=== PATIENT | male | born 1995 | race Two or more races ===

== ENCOUNTER 2024-03-10 12:50 | Emergency (ER) | payer MEDICAID, OTHER ==
[~2024-03-10] VITALS: Ht 167.6 cm; Wt 110.8 kg
[2024-03-10 14:34] VITALS: BP 111/66; PULSE 67; RESP 16; TEMP 98.8; O2SAT 97
[2024-03-10] MEDS: ONDANSETRON ODT 4 MG TAB PO ONE (14:42)
[2024-03-10] MEDS: DICYCLOMINE HCL (10MG/ML) 2 ML AMPULE IM ONE (14:43)
[2024-03-10] MEDS ORDERED: LOPE2TAB99 PO (15:42)
[2024-03-10] MEDS ORDERED: DICY10CA PO (15:42)
[2024-03-10] MEDS ORDERED: ZOFR4T PO (15:42)
== END 2024-03-10 16:20 | disposition home or self-care (01) ==
LOC: ER 12:52
DX: K52.9 Noninfective gastroenteritis and colitis, unspecified (principal)
CPT/HCPCS: 96372; 99283; J0500; Q0162